=== PATIENT | female | born 1950 | race Native Hawaiian/Other Pacific Islander ===

== ENCOUNTER 2019-04-19 16:42 | Outpatient (REF) | payer MEDICARE, SELFPAY ==
[2019-04-19 17:40] LABS: Bilirubin Negative (Negative); Blood Negative (Negative); Clarity Clear (Clear); Glucose Negative (Negative); Ketones Negative (Negative); Leukocyte Esterase Small (Negative); Nitrite Negative (Negative); Specific Gravity 1.015 (1.005-1.025); Urobilinogen 0.2 EU/dL (Up TO 0.2)
[2019-04-19 17:51] LABS: C & S Indicated? C&S Done As Ordered
[2019-04-19 18:28] LABS: Bacteria Negative HPF (Negative); Casts Negative LPF (Negative); Crystals Negative HPF (Negative); Epithelial Cells Rare HPF (Negative); Mucus Negative (Negative); Other Cells Few Renal (Negative); RBC 0-2 HPF (0-2)
== END 2019-04-19 17:02 ==
LOC: LBN 16:42
PROVIDERS: Visit Provider Family Medicine
DX: E11.22 Type 2 diabetes mellitus with diabetic chronic kidney disease (principal); I10 Essential (primary) hypertension; I50.32 Chronic diastolic (congestive) heart failure; R32 Unspecified urinary incontinence; R82.90 Unspecified abnormal findings in urine
CPT/HCPCS: 81003; 81015; 87086

== ENCOUNTER 2019-04-22 09:56 | Outpatient (CLI) | payer MEDICARE, SELFPAY ==
[2019-04-22 10:53] LABS: Abs Immature Grans 0.04 k/cumm (0.0-0.09); Absolute Basophil Count 0.08 k/cumm (0.0-0.2); Absolute Eosinophil Count 0.25 k/cumm (0.0-0.7); Absolute Lymphocyte Count 1.63 k/cumm (1.2-3.4); Absolute Monocyte Count 1.01 k/cumm (0.11-0.7); Absolute Neutrophil Count 4.62 k/cumm (1.2-6.7); Eosinophils % 3.3; HCT 40.5 % (36.0-46.0); HGB 13.2 g/dL (12.0-15.5); Immature Grans % 0.5; Lymphocytes % 21.4; Mean Corp. HGB Concentration 32.6 g/dL (32.0-36.0); Mean Corpuscular Hemoglobin 28.6 pg (27.0-33.0); Mean Corpuscular Volume 87.7 fL (80-95); Mean Platelet Volume 13.2 fL (8.0-11.0); Monocytes % 13.2; Neutrophils % 60.6; Platelet Count 111 x1000/uL (130-400); RBC 4.62 m/cumm (4.00-5.20); RBC Distribution Width 17.2 % (11.7-14.6); White Blood Cell Count 7.63 k/cumm (4.4-10.8)
[2019-04-22 11:22] LABS: Hemoglobin A1C 6.5 % (4.5-6.2)
[2019-04-22 11:28] LABS: ALT 46 U/L (14-59); AST 35 U/L (15-37); Albumin 3.2 g/dL (3.4-5.0); Alkaline Phosphatase 179 U/L (46-116); Anion Gap 10.5 mmol/L (3-11); BUN 28 mg/dL (7-18); Bilirubin, Total 0.9 mg/dL (0.2-1.0); C-Reactive Protein 2.98 mg/dL (0.0-0.3); CO2 29.5 mmol/L (21.0-32.0); CREATININE 1.18 mg/dL (0.55-1.02); Calcium 8.7 mg/dL (8.5-10.1); Chloride 103 mmol/L (98-107); Estimated GFR 45.42 (mL/min/1.73m2); Glucose 128 mg/dL (74-106); Potassium 3.2 mmol/L (3.5-5.1); Sodium 143 mmol/L (136-145)
[2019-04-22 12:44] LABS: ESR 44 mm/hr (0-30)
== END 2019-04-22 10:16 ==
PROVIDERS: PCP Family Medicine; Visit Provider Family Medicine
DX: E11.9 Type 2 diabetes mellitus without complications (principal); I50.32 Chronic diastolic (congestive) heart failure
CPT/HCPCS: 36415; 80053; 85652; 83036; 85025; 86140

== ENCOUNTER 2019-04-29 11:42 | Outpatient (CLI) | payer MEDICARE, SELFPAY ==
[2019-04-29 13:17] LABS: TROPONIN-I 6.4 ug/mL (4.0-12.0)
== END 2019-04-29 12:02 ==
PROVIDERS: PCP Family Medicine; Visit Provider Nurse Practitioner Adult Health
DX: Z51.81 Encounter for therapeutic drug level monitoring (principal); R69 Illness, unspecified
CPT/HCPCS: 36415; 80156